=== PATIENT | female | born 1960 | race Caucasian/White ===

== ENCOUNTER 2021-09-14 17:59 | Emergency (ER) | payer MEDICARE, MEDICAID ==
[~2021-09-14] VITALS: Ht 170.2 cm; Wt 75.0 kg
[~2021-09-14 17:59] MED LIST: ACET160E68 PO; ASPI-556 PO; BUDE10.2 IH; IBUP1TAB76 PO; NITR0.4T52 SL
[2021-09-14] MEDS: ACETAMINOPHEN 325 MG TABLET PO ONE (19:01)
[2021-09-14] MEDS: SODIUM CHLORIDE 0.9% 1,000 ML IV ONE (19:02)
[2021-09-14 19:03] LABS: COVID AG,FIA SOURCE NASOPHARYNGEAL
[2021-09-14 19:32] LABS: INFLUENZA TYPE A NEGATIVE FOR TYPE A (NEGATIVE); INFLUENZA TYPE B NEGATIVE FOR TYPE B (NEGATIVE)
[2021-09-14] MEDS: KETOROLAC TROMETHAMINE 30 MG/ML VIAL IVP ONE (20:13)
[2021-09-14 21:44] VITALS: BP 129/83
== END 2021-09-14 21:50 | disposition home or self-care (01) ==
LOC: EMS 18:02
DX: U07.1 COVID-19 (principal)
CPT/HCPCS: 71045; 87426; 87804; 96361; 96374; 99285; J1885; U0003

== ENCOUNTER 2023-02-24 20:20 | Emergency (ER) | payer MEDICAID, MEDICARE ==
[~2023-02-24] VITALS: Ht 170.2 cm; Wt 75.0 kg
[2023-02-24 20:34] VITALS: BP 142/72
[2023-02-24] MEDS ORDERED: FLUT1BLS9 IH (20:38)
[2023-02-24] MEDS ORDERED: PANT40TA54 PO (20:38)
[2023-02-24] MEDS ORDERED: CHOL200074 PO (20:38)
[2023-02-24] MEDS ORDERED: GABA-1181 PO (20:38)
[2023-02-24] MEDS ORDERED: MONT-40 PO (20:38)
[2023-02-25] MEDS ORDERED: CYCL-448 PO (01:23)
[2023-02-25] MEDS ORDERED: IBUP-1492 PO (01:23)
== END 2023-02-25 01:30 | disposition home or self-care (01) ==
LOC: EMS 20:24
DX: M25.552 Pain in left hip (principal); M19.90 Unspecified osteoarthritis, unspecified site; J45.909 Unspecified asthma, uncomplicated; Z98.890 Other specified postprocedural states; Z96.649 Presence of unspecified artificial hip joint
CPT/HCPCS: 99283; Z7502